=== PATIENT | male | born 1940 | race Caucasian/White ===

== ENCOUNTER 2018-05-10 23:50 | Emergency (ER) | payer OTHER, BC ==
[~2018-05-10] VITALS: Ht 180.3 cm; Wt 106.1 kg
[~2018-05-10 23:50] MED LIST: ALLOPURINOL100 MG PO; ALLOPURINOL300 MG PO; ASPIR-LOW81 MG PO; ASPIR-TRIN325 M1 PO; Buspar PO; CLONAZEPAM0.5 MG PO; CLONAZEPAM1 MG PO; DESYREL100 MG PO; DIOVAN160 MG PO; EFFEXOR XR75 MG PO; Ecotrin PO; FLOMAX0.4 MG PO; HYDROCHLOROTH12.5 M3 PO; Hydrodiuril,Oretic,E PO; KLONOPIN1 MG PO; LAMICTAL25 MG PO; LOMOTIL TABLET1 EACH PO; LOSARTAN-HCTZ1 EAC2 PO; NEURONTIN100 MG PO; NIFEDIPINE ER90 MG PO; PAROXETINE HCL20 MG PO; PAXIL20 MG PO; PROCARDIA10 MG PO; PROTONIX40 MG PO; SEROQUEL100 MG PO; SEROQUEL12.5 MG PO; SYNTHROID25 MCG PO; TOPROL XL50 MG PO; TRAZODONE HCL50 MG PO; VENLAFAXINE HCL75 M1 PO; VENLAFAXINE HCL75 M3 PO; VITAMIN D31000 UNI2 PO; WELLBUTRIN XL300 MG PO; Xanax PO
[2018-05-11 00:39] LABS: APPEARANCE CLOUDY ((CLEAR)); COLOR RED ((YELLOW)); GLUCOSE (STRIP) NEGATIVE; KETONES 20; LEUKOCYTES MODERATE; NITRITE NEGATIVE; PROTEIN (STRIP) 100; SPECIFIC GRAVITY 1.015 (1.000-1.030)
[2018-05-11 00:40] LABS: BILIRUBIN NEGATIVE; BLOOD LARGE; UROBILINOGEN 0.2 MG/DL (0.2-1.0)
[2018-05-11 00:56] LABS: RED BLOOD CELLS TNTC /HPF (0-5)
[2018-05-11 00:58] LABS: BACTERIA NONE SEEN /HPF; EPITHELIAL CELLS NONE SEEN /HPF; MUCUS NONE SEEN /LPF; UCUL ADDED? YES
[2018-05-11] MEDS ORDERED: PYRIDIUM200 MG PO (00:58)
[2018-05-11] MEDS ORDERED: CIPRO500 MG PO (00:58)
[2018-05-11 01:35] VITALS: BP 163/86
== END 2018-05-11 01:35 | disposition home or self-care (01) ==
LOC: EME 23:50
DX: N39.0 Urinary tract infection, site not specified (principal); B96.1 Klebsiella pneumoniae [K. pneumoniae] as the cause of diseases classified elsewhere; I10 Essential (primary) hypertension; E78.5 Hyperlipidemia, unspecified; K21.9 Gastro-esophageal reflux disease without esophagitis; F41.9 Anxiety disorder, unspecified; F32.9 Major depressive disorder, single episode, unspecified; Z87.442 Personal history of urinary calculi; Z85.828 Personal history of other malignant neoplasm of skin; Z85.46 Personal history of malignant neoplasm of prostate; Z98.890 Other specified postprocedural states; Z91.048 Other nonmedicinal substance allergy status; Z88.1 Allergy status to other antibiotic agents
CPT/HCPCS: 81003; 87077; 87086; 87186; 99281; 99284